=== PATIENT | female | born 1930 | race Hispanic/Latino ===

== ENCOUNTER 2017-12-19 11:55 | Inpatient (IN) | payer MEDICARE, MEDICAID ==
--- NOTE | 2017-12-19 13:42 | C.PDOC ---
History Of Present Illness 87 y/o female brought to ER from [facility] for evaluation of lethargy and confusion which has been present for the past 10 days. Patient is also complaining of decreased appetite. Patient denies having fever,chills, cough, and SOB. Time Seen by Provider: 12/19/17 13:42 Chief Complaint (Nursing): Altered Mental Status History Per: Patient History/Exam Limitations: None Onset/Duration Of Symptoms: Days Current Symptoms Are (Timing): Still Present Severity: Moderate Past Medical History Reviewed: Historical Data, Nursing Documentation, Vital Signs Vital Signs: Last Vital Signs Temp Pulse Resp BP Pulse Ox 94 L 12/19/17 16:24 - Medical History PMH: Anxiety, Atrial Fibrillation, CHF, HTN Surgical History: No Surg Hx Family History: States: No Known Family Hx - Social History Hx Alcohol Use: No Hx Substance Use: No - Immunization History Hx Tetanus Toxoid Vaccination: No Hx Influenza Vaccination: Yes Hx Pneumococcal Vaccination: Yes Review Of Systems Except As Marked, All Systems Reviewed And Found Negative. Constitutional: Positive for: Other (lethargy). Negative for: Fever, Chills Physical Exam - Physical Exam Appears: Non-toxic, No Acute Distress, Other (awake, alert) Skin: Normal Color, Warm, Dry Head: Atraumatic, Normacephalic Eye(s): bilateral: Normal Inspection Nose: Normal Oral Mucosa: Moist Neck: Supple Chest: Symmetrical Cardiovascular: Rhythm Regular Respiratory: Decreased Breath Sounds (decreased breath sounds to right side), No Rales, No Rhonchi, No Wheezing Gastrointestinal/Abdominal: Normal Exam, Soft, No Tenderness, Other (obese) Extremity: Normal ROM, Other (bilateral leg edema( 3/4)) Neurological/Psych: Oriented x3, Normal Speech ED Course And Treatment - Laboratory Results Result Diagrams: 12/19/17 13:50 12/19/17 13:50 Lab Interpretation: Abnormal (d-dimer 1500 prob c/w PNA and NOT DVT/PE as legs NEG US's for DVT's) ECG: Interpreted By Me ECG Rhythm: Atrial Fibrillation Rate From EC O2 Sat by Pulse Oximetry: 94 (RA) Pulse Ox Interpretation: Abnormal - Radiology CXR: Interpreted by Me CXR Interpretation: Yes: Infiltrates (+RLL) - Other Rad US of legs for DVT X-Ray: Interpreted by Me, Read By Radiologist (neg) - CT Scan/US head CT Other Rad Studies (CT/US): Interpreted By Me (no acute findings.), Radiology Report Reviewed Progress Note: vanco/beto castroix Reevaluation Time: 15:12 Reassessment Condition: Improved - Physician Consult Information Outcome Of Conversation: 1500: d/w Dr. Fernandez- admitting for Dr. Ortiz- ok to admit. Medical Decision Making Medical Decision Making: leg edema, CHF, PNA nosocomial, no DVT/PE started Rocephin/Azithro in ED as no Avelox available Plan to continue Zosyn/Vanco during admission for Nosocomial acquired PNA (pt @ [facility]) Disposition Doctor Will See Patient In The: Hospital Counseled Patient/Family Regarding: Studies Performed, Diagnosis - Disposition Disposition: HOSPITALIZED Disposition Time: 15:14 Condition: FAIR - Clinical Impression Clinical Impression: CHF (congestive heart failure), Pneumonia - Scribe Statement The provider has reviewed the documentation as recorded by the Carey Tam Provider Attestation: All medical record entries made by the Carey were at my direction and personally dictated by me. I have reviewed the chart and agree that the record accurately reflects my personal performance of the history, physical exam, medical decision making, and the department course for this patient. I have also personally directed, reviewed, and agree with the discharge instructions and disposition.
[2017-12-19 14:00] LABS: BASO # 0.1 K/uL (0.0-0.2); BASO % 1.1 % (0.0-2.0); EOS # 0.2 K/uL (0.0-0.7); EOS % 2.8 % (0.0-4.0); HEMOGLOBIN 10.6 g/dL (11.0-16.0); LYMPH % 18.5 % (20.0-40.0); MEAN CELL VOLUME 82.3 fL (81.0-99.0); MEAN CORPUSCULAR HEMOGLOBIN 26.8 pg (27.0-31.0); MEAN CORPUSCULAR HGB CONC 32.5 g/dL (33.0-37.0); MONO # 0.7 K/uL (0.0-0.8); NEUT # 3.5 K/uL (1.8-7.0); NEUT % 64.6 % (50.0-75.0); NRBC % 0.2 % (0.0-2.0); RBC 3.95 Mil/uL (3.80-5.20); RED CELL DISTRIBUTION WIDTH 19.1 % (11.5-14.5); WHITE BLOOD COUNT 5.4 K/uL (4.8-10.8)
[2017-12-19] MEDS ORDERED: Moxifloxacin IV 400mg/250ml NS 400 MG/250 ML BAG IV ONE (14:04)
[2017-12-19 14:19] LABS: ALBUMIN 3.6 g/dL (3.5-5.0); CALCIUM 9.2 mg/dl (8.6-10.4)
[2017-12-19 14:20] LABS: INR 1.5; PROTHROMBIN TIME 16.1 SECONDS (9.7-12.2)
[2017-12-19] MEDS ORDERED: Azithromycin 500 MG in Sodium Chloride 0.9% 250 ML IV STA (14:26)
[2017-12-19] MEDS ORDERED: cefTRIAXone IV 1 gm in Dextros 50 ML IV ONE (14:26)
[2017-12-19 14:30] LABS: TROPONIN I 0.022 ng/mL (0.00-0.120)
--- NOTE | 2017-12-19 14:52 | RAD ---
PROCEDURE: CHEST RADIOGRAPH, 1 VIEW HISTORY: SOB COMPARISON: None available. FINDINGS: LUNGS: Multifocal infiltrates the largest in the right upper lobe. Additional lower lobe infiltrates. PLEURA: No pneumothorax or pleural fluid seen. CARDIOVASCULAR: Marked cardiomegaly. OSSEOUS STRUCTURES: No significant abnormalities. VISUALIZED UPPER ABDOMEN: Normal. OTHER FINDINGS: None. IMPRESSION: Cardiomegaly without pulmonary edema. Bilateral infiltrates primarily right upper lobe and left lower lobe. Concordant results with the preliminary interpretation rendered by the emergency department physician procedure.
[2017-12-19] MEDS ORDERED: Piperacillin/Tazobact 3.375 gm 100 ML IVPB ONE (14:55)
--- NOTE | 2017-12-19 15:28 | CT ---
PROCEDURE: CT HEAD WITHOUT CONTRAST. HISTORY: 10 days MS change, falls, neuro nl, ? [facility] COMPARISON: None available. TECHNIQUE: Axial computed tomography images were obtained through the head/brain without intravenous contrast. Radiation dose: Total exam DLP = 809.97 mGy-cm. This CT exam was performed using one or more of the following dose reduction techniques: Automated exposure control, adjustment of the mA and/or kV according to patient size, and/or use of iterative reconstruction technique. FINDINGS: HEMORRHAGE: No intracranial hemorrhage. BRAIN: Good corticomedullary differentiation is seen. Diffuse expansion of the ventriculosulcal and cisternal spaces is appreciated with borderline white matter lucency compatible with diffuse cerebral atrophy and chronic microangiopathy. No suspicious extra-axial fluid collection is identified and the midline brain anatomy appears grossly nonfocal as imaged. There is no mass effect throughout. VENTRICLES: Unremarkable. No hydrocephalus. CALVARIUM: Unremarkable. PARANASAL SINUSES: Unremarkable as visualized. No significant inflammatory changes. MASTOID AIR CELLS: Unremarkable as visualized. No inflammatory changes. OTHER FINDINGS: None. IMPRESSION: Mild age related neuro degenerative changes are identified without definite acute intracranial findings by standard CT criteria. Follow-up MRI or CT of the head are available if indicated.
[2017-12-19 15:30] LABS: ABG ALLEN TEST PO; ARTERIAL BLOOD GAS HCO3 22.2 mmol/L (21-28); ARTERIAL BLOOD GAS HEMOGLOBIN 9.8 g/dL (11.7-17.4); ARTERIAL BLOOD GAS O2 SAT 98.3 % (95-98); ARTERIAL BLOOD GAS PCO2 36 mm/Hg (35-45); ARTERIAL BLOOD GAS PH 7.38 (7.35-7.45); ARTERIAL BLOOD GAS PO2 108 mm/Hg (80-100); ARTERIAL BLOOD GAS TCO2 22.4 mmol/L (22-28)
[2017-12-19 15:35] LABS: URINE BILIRUBIN NEGATIVE (NEGATIVE); URINE BLOOD 3+ (NEGATIVE); URINE CLARITY Hazy (Clear); URINE COLOR Yellow (YELLOW); URINE GLUCOSE (UA) 1+ mg/dL (Normal); URINE LEUKOCYTE ESTERASE 3+ Leu/uL (Negative); URINE PROTEIN 1+ mg/dL (NEGATIVE); URINE UROBILINOGEN NORMAL mg/dL (0.2-1.0)
[2017-12-19 15:37] LABS: URINE BACTERIA FEW (<OCC)
[2017-12-19] MEDS ORDERED: Pilocarpine 2% Opht (15 ml) OS SCH (18:30)
[2017-12-19 19:23] VITALS: RESP 20
[2017-12-19] MEDS ORDERED: Albuterol-Ipratrop 3 mg / 0.5 (3 ml) UD ONE (21:15)
[2017-12-19] MEDS: Albuterol-Ipratrop 3 mg / 0.5 (3 ml) UD INH SCH (21:25)
[2017-12-20] MEDS: Albuterol-Ipratrop 3 mg / 0.5 (3 ml) UD INH SCH ×4 (02:09→19:09)
--- NOTE | 2017-12-20 06:07 | HP ---
CHIEF COMPLAINT: Confusion, altered mental status. HISTORY OF PRESENT ILLNESS: This is an 87-year-old female, sent from intermediate for evaluation of lethargy and confusion. The patient had these symptoms for almost 10 days. At the time, the patient in the intermediate had some blood testing and evaluation and was sent to the emergency room because of the worsening lethargy. The patient was also having decreased appetite. Currently, the patient is in the emergency room. She is complaining of no pain, no chest pain, no cough. She wanted to go home at this time. The patient claims that she was seen by Dr. Livingston and was told that after blood test, sent to emergency room. She is now confused somewhat. She does not know where she is. She is confused to place and as well as person. She is able to remember her next of kin, nieces, and nephews. She has no distress at this time. She does not have any pain. She was not able to walk because of both leg swelling. She has significant hemorrhoids, and also having some constipation. She has no vomiting, no nausea, no headache. PAST MEDICAL HISTORY: Atrial fibrillation, congestive heart failure, hypertension, and anxiety. PAST SURGICAL HISTORY: Include appendectomy. FAMILY HISTORY: Noncontributory. SOCIAL HISTORY: The patient is nonalcoholic and nonsmoker, currently in the intermediate. The patient received pneumococcal and flu vaccination. REVIEW OF SYSTEMS: Noted from the chart. The patient does not have any headache at this time. Complaining of no nausea or vomiting, but the patient does have significant weakness, fatigue, lethargy, and also found to have some altered mental status. PHYSICAL EXAMINATION: GENERAL: Now, the patient is alert and responding well, but easily sleeping. VITAL SIGNS: Vital signs noted. CHEST: Good air entry bilaterally. HEART: Irregular heart sound. ABDOMEN: Nontender abdomen. EXTREMITIES: Significant edema noted up to the mid thigh region. HEAD AUTOMATIC SAWYER: Alert, awake, but confused for time and place. LABORATORY DATA: The patient's labs reviewed. WBC 5.4, hemoglobin 10.6, hematocrit 32.5, platelets 169. PT/INR is normal. Elevated D-dimer noted. Blood ABG, pH is 7.38, pCO2 36, and pO2 108, saturation 94%. Chemistries: BUN is 50, creatinine 2.1, proBNP is mildly elevated. It is otherwise nonspecific. UA: Evidence of infection noted. Digoxin level is on the low side. Chest x-ray showing significant diffuse bilateral ground glass opacities and infiltration noted. EKG pending at this time. Cardiac enzymes are negative. ASSESSMENT AND RECOMMENDATIONS: Arelis Rush is an 87-year-old female now admitted with possible diffuse lung changes with mild hypoxia and also dyspnea and lethargy. Underlying pneumonia cannot be ruled out, possible urinary tract infection. Currently on IV antibiotic with Zosyn to cover empirically the urinary tract infection. She is not having any allergy. The patient is possibly having diffuse interstitial lung changes. Interstitial lung disease cannot be ruled out. The patient also noted to have atrial fibrillation. We will get EKG cardiac evaluation, antibiotic, closely monitor, fall precaution, possibly dementia also noted. We will discuss with the family regarding the advanced directives. We will follow up the patient. Dane Ventura MD MTDD
[2017-12-20 07:45] LABS: BASO # 0.1 K/uL (0.0-0.2); BASO % 1.1 % (0.0-2.0); EOS # 0.1 K/uL (0.0-0.7); EOS % 2.4 % (0.0-4.0); HEMOGLOBIN 10.1 g/dL (11.0-16.0); LYMPH # 1.1 K/uL (1.0-4.3); LYMPH % 20.9 % (20.0-40.0); MEAN CORPUSCULAR HEMOGLOBIN 26.2 pg (27.0-31.0); MEAN PLATELET VOLUME 8.7 fL (7.2-11.7); MONO # 0.6 K/uL (0.0-0.8); MONO % 11.2 % (0.0-10.0); NEUT # 3.3 K/uL (1.8-7.0); NEUT % 64.4 % (50.0-75.0); NRBC % 0.1 % (0.0-2.0); RBC 3.84 Mil/uL (3.80-5.20); WHITE BLOOD COUNT 5.2 K/uL (4.8-10.8)
[2017-12-20] MEDS: Piperacillin/Tazobact 3.375 GM in Sodium Chloride 100 ML IVPB SCH ×2 (08:00→16:45)
[2017-12-20 08:16] LABS: ALBUMIN 3.4 g/dL (3.5-5.0); ALT/SGPT 25 U/L (9-52); AST/SGOT 31 U/L (14-36); BLOOD UREA NITROGEN 49 mg/dL (7-17); CALCIUM 9.5 mg/dl (8.6-10.4); GFR AFRICAN-AMERICAN 30; GFR NON-AFRICAN AMERICAN 25
[2017-12-20 08:18] LABS: CK-MB 1.32 ng/mL (0.0-3.38)
--- NOTE | 2017-12-20 08:20 | CP.PCM.CON ---
Past Patient History - Infectious Disease Hx of Infectious Diseases: None - Past Medical History & Family History Past Medical History?: Yes - Past Social History Smoking Status: Never Smoked - CARDIAC Hx Cardiac Disorders: Yes Hx Atrial Fibrillation: Yes Hx Congestive Heart Failure: Yes Hx Hypertension: Yes - PULMONARY Hx Respiratory Disorders: No - NEUROLOGICAL Hx Neurological Disorder: No - HEENT Hx HEENT Problems: Yes Hx Glaucoma: Yes - RENAL Hx Chronic Kidney Disease: No - ENDOCRINE/METABOLIC Hx Endocrine Disorders: Yes Hx Diabetes Mellitus Type 2: Yes - HEMATOLOGICAL/ONCOLOGICAL Hx Blood Disorders: No - INTEGUMENTARY Hx Dermatological Problems: No - MUSCULOSKELETAL/RHEUMATOLOGICAL Hx Musculoskeletal Disorders: Yes Hx Falls: No Hx Fractures: Yes Other/Comment: Hx of right and left femur fractures. - GASTROINTESTINAL Hx Gastrointestinal Disorders: No - GENITOURINARY/GYNECOLOGICAL Hx Genitourinary Disorders: Yes Hx Incontinence: Yes - PSYCHIATRIC Hx Psychophysiologic Disorder: Yes Hx Anxiety: Yes Hx Substance Use: No - SURGICAL HISTORY Hx Surgeries: No Other/Comment: Unknown, unable to obtain. - ANESTHESIA Hx Anesthesia: No Hx Anesthesia Reactions: No Hx Malignant Hyperthermia: No Meds Allergies/Adverse Reactions: Allergies Allergy/AdvReac Type Severity Reaction Status Date / Time No Known Allergies Allergy Unverified 12/19/17 13:18 - Medications Medications: Current Medications Albuterol/Ipratropium (Duoneb 3 Mg/0.5 Mg (3 Ml) Ud) 3 ml INH RQ6 [facility] Last Admin: 12/20/17 02:09 Dose: Not Given Aspirin (Ecotrin) 81 mg PO DAILY [facility] Diltiazem HCl (Cardizem) 30 mg PO Q8H [facility] Last Admin: 12/20/17 02:51 Dose: Not Given Furosemide (Lasix) 40 mg IVP DAILY [facility] Home Med (Acetaminophen [Tylenol]) 325 mg PO Q6 PRN PRN Reason: Opiate reversal Home Med (Travoprost [Travatan Z]) 1 drop OP DAILY [facility] Piperacillin Sod/Tazobactam (Sod 3.375 gm/ Sodium Chloride) 100 mls @ 200 mls/ hr IVPB Q8H [facility] PRN Reason: Protocol Last Admin: 12/20/17 08:00 Dose: 200 mls/hr Metoprolol Tartrate (Lopressor) 25 mg PO BID [facility] Pilocarpine HCl (Isopto Carpine 2% Opht Soln) 1 drop OS Q8H [facility] Last Admin: 12/20/17 02:50 Dose: Not Given Results - Vital Signs Recent Vital Signs: Last Vital Signs Temp 97.7 F 12/20/17 07:00 Pulse 98 H 12/20/17 07:00 Resp 20 12/20/17 07:00 BP 127/74 12/20/17 07:00 Pulse Ox 99 12/20/17 07:00 - Labs Result Diagrams: 12/20/17 07:35 12/20/17 07:35 Labs: Laboratory Results - last 24 hr 12/19/17 12/19/17 12/19/17 13:50 13:50 13:50 WBC 5.4 RBC 3.95 Hgb 10.6 L Hct 32.5 L MCV 82.3 MCH 26.8 L MCHC 32.5 L RDW 19.1 H Plt Count 169 MPV 9.0 Neut % (Auto) 64.6 Lymph % (Auto) 18.5 L [place] % (Auto) 13.0 H Eos % (Auto) 2.8 Baso % (Auto) 1.1 Neut # (Auto) 3.5 Lymph # (Auto) 1.0 [place] # (Auto) 0.7 Eos # (Auto) 0.2 Baso # (Auto) 0.1 PT 16.1 H INR 1.5 APTT 31 D-Dimer, Quantitative 1488 H Puncture Site pCO2 pO2 HCO3 ABG pH ABG Total CO2 ABG O2 Saturation ABG Base Excess ABG Hemoglobin ABG Carboxyhemoglobin POC ABG HHb (Measured) ABG Methemoglobin Tad Test A-a O2 Difference Respiratory Index Hgb O2 Saturation Liter Flow FiO2 Sodium 145 Potassium 4.9 Chloride 104 Carbon Dioxide 24 Anion Gap 21 H BUN 50 H Creatinine 2.1 H Est GFR ( Amer) 27 Est GFR (Non-Af Amer) 22 Random Glucose 84 Calcium 9.2 Total Bilirubin 1.3 AST 31 ALT 13 Alkaline Phosphatase 121 Total Creatine Kinase CK-MB (Mass) Troponin I 0.0220 NT-Pro-B Natriuret Pep 4830 H Total Protein 7.1 Albumin 3.6 Globulin 3.5 Albumin/Globulin Ratio 1.0 Urine Color Urine Clarity Urine pH Ur Specific [place] Urine Protein Urine Glucose (UA) Urine Ketones Urine Blood Urine Nitrate Urine Bilirubin Urine Urobilinogen Ur Leukocyte Esterase Urine WBC (Auto) Urine RBC (Auto) Urine Bacteria Digoxin 12/19/17 12/19/17 12/19/17 13:50 15:19 15:27 WBC RBC Hgb Hct MCV MCH MCHC RDW Plt Count MPV Neut % (Auto) Lymph % (Auto) [place] % (Auto) Eos % (Auto) Baso % (Auto) Neut # (Auto) Lymph # (Auto) [place] # (Auto) Eos # (Auto) Baso # (Auto) PT INR APTT D-Dimer, Quantitative Puncture Site Lr pCO2 36 pO2 108 H HCO3 22.2 ABG pH 7.38 ABG Total CO2 22.4 ABG O2 Saturation 98.3 H ABG Base Excess -3.4 L ABG Hemoglobin 9.8 L ABG Carboxyhemoglobin 2.5 H POC ABG HHb (Measured) 1.6 ABG Methemoglobin 1.1 Tad Test Po A-a O2 Difference 61.0 Respiratory Index 0.6 Hgb O2 Saturation 94.8 L Liter Flow 2.5 FiO2 30.0 Sodium Potassium Chloride Carbon Dioxide Anion Gap BUN Creatinine Est GFR ( Amer) Est GFR (Non-Af Amer) Random Glucose Calcium Total Bilirubin AST ALT Alkaline Phosphatase Total Creatine Kinase CK-MB (Mass) Troponin I NT-Pro-B Natriuret Pep Total Protein Albumin Globulin Albumin/Globulin Ratio Urine Color Yellow Urine Clarity Hazy Urine pH 5.0 Ur Specific [place] 1.010 Urine Protein 1+ H Urine Glucose (UA) 1+ Urine Ketones Negative Urine Blood 3+ H Urine Nitrate Positive H Urine Bilirubin Negative Urine Urobilinogen Normal Ur Leukocyte Esterase 3+ H Urine WBC (Auto) 336 H Urine RBC (Auto) 51 H Urine Bacteria Few H Digoxin < 0.4 L 12/20/17 12/20/17 07:35 07:35 WBC 5.2 RBC 3.84 Hgb 10.1 L Hct 31.5 L MCV 82.0 MCH 26.2 L MCHC 32.0 L RDW 19.0 H Plt Count 159 MPV 8.7 Neut % (Auto) 64.4 Lymph % (Auto) 20.9 [place] % (Auto) 11.2 H Eos % (Auto) 2.4 Baso % (Auto) 1.1 Neut # (Auto) 3.3 Lymph # (Auto) 1.1 [place] # (Auto) 0.6 Eos # (Auto) 0.1 Baso # (Auto) 0.1 PT INR APTT D-Dimer, Quantitative Puncture Site pCO2 pO2 HCO3 ABG pH ABG Total CO2 ABG O2 Saturation ABG Base Excess ABG Hemoglobin ABG Carboxyhemoglobin POC ABG HHb (Measured) ABG Methemoglobin Tad Test A-a O2 Difference Respiratory Index Hgb O2 Saturation Liter Flow FiO2 Sodium 144 Potassium 5.0 Chloride 103 Carbon Dioxide 27 Anion Gap 18 BUN 49 H Creatinine 1.9 H Est GFR ( Amer) 30 Est GFR (Non-Af Amer) 25 Random Glucose 81 Calcium 9.5 Total Bilirubin 1.3 AST 31 ALT 25 Alkaline Phosphatase 114 Total Creatine Kinase < 20 L CK-MB (Mass) 1.32 Troponin I 0.0150 NT-Pro-B Natriuret Pep Total Protein 6.9 Albumin 3.4 L Globulin 3.5 Albumin/Globulin Ratio 1.0 Urine Color Urine Clarity Urine pH Ur Specific [place] Urine Protein Urine Glucose (UA) Urine Ketones Urine Blood Urine Nitrate Urine Bilirubin Urine Urobilinogen Ur Leukocyte Esterase Urine WBC (Auto) Urine RBC (Auto) Urine Bacteria Digoxin
--- NOTE | 2017-12-20 08:20 | CP.PCM.CON ---
History of Present Illness - History of Present Illness History of Present Illness: patient seen/examined. full consult to follow. will rate control Unclear if she is ideal candidate for [facility] anticoagulation due to falls risk Past Patient History - Infectious Disease Hx of Infectious Diseases: None - Past Medical History & Family History Past Medical History?: Yes - Past Social History Smoking Status: Never Smoked - CARDIAC Hx Cardiac Disorders: Yes Hx Atrial Fibrillation: Yes Hx Congestive Heart Failure: Yes Hx Hypertension: Yes - PULMONARY Hx Respiratory Disorders: No - NEUROLOGICAL Hx Neurological Disorder: No - HEENT Hx HEENT Problems: Yes Hx Glaucoma: Yes - RENAL Hx Chronic Kidney Disease: No - ENDOCRINE/METABOLIC Hx Endocrine Disorders: Yes Hx Diabetes Mellitus Type 2: Yes - HEMATOLOGICAL/ONCOLOGICAL Hx Blood Disorders: No - INTEGUMENTARY Hx Dermatological Problems: No - MUSCULOSKELETAL/RHEUMATOLOGICAL Hx Musculoskeletal Disorders: Yes Hx Falls: No Hx Fractures: Yes Other/Comment: Hx of right and left femur fractures. - GASTROINTESTINAL Hx Gastrointestinal Disorders: No - GENITOURINARY/GYNECOLOGICAL Hx Genitourinary Disorders: Yes Hx Incontinence: Yes - PSYCHIATRIC Hx Psychophysiologic Disorder: Yes Hx Anxiety: Yes Hx Substance Use: No - SURGICAL HISTORY Hx Surgeries: No Other/Comment: Unknown, unable to obtain. - ANESTHESIA Hx Anesthesia: No Hx Anesthesia Reactions: No Hx Malignant Hyperthermia: No Meds Allergies/Adverse Reactions: Allergies Allergy/AdvReac Type Severity Reaction Status Date / Time No Known Allergies Allergy Unverified 12/19/17 13:18 - Medications Medications: Current Medications Albuterol/Ipratropium (Duoneb 3 Mg/0.5 Mg (3 Ml) Ud) 3 ml INH RQ6 [facility] Last Admin: 12/20/17 02:09 Dose: Not Given Aspirin (Ecotrin) 81 mg PO DAILY [facility] Diltiazem HCl (Cardizem) 30 mg PO Q8H [facility] Last Admin: 12/20/17 02:51 Dose: Not Given Furosemide (Lasix) 40 mg IVP DAILY [facility] Home Med (Acetaminophen [Tylenol]) 325 mg PO Q6 PRN PRN Reason: Opiate reversal Home Med (Travoprost [Travatan Z]) 1 drop OP DAILY [facility] Piperacillin Sod/Tazobactam (Sod 3.375 gm/ Sodium Chloride) 100 mls @ 200 mls/ hr IVPB Q8H [facility] PRN Reason: Protocol Last Admin: 12/20/17 08:00 Dose: 200 mls/hr Metoprolol Tartrate (Lopressor) 25 mg PO BID [facility] Pilocarpine HCl (Isopto Carpine 2% Opht Soln) 1 drop OS Q8H [facility] Last Admin: 12/20/17 02:50 Dose: Not Given Results - Vital Signs Recent Vital Signs: Last Vital Signs Temp 97.7 F 12/20/17 07:00 Pulse 98 H 12/20/17 07:00 Resp 20 12/20/17 07:00 BP 127/74 12/20/17 07:00 Pulse Ox 99 12/20/17 07:00 - Labs Result Diagrams: 12/20/17 07:35 12/20/17 07:35 Labs: Laboratory Results - last 24 hr 12/19/17 12/19/17 12/19/17 13:50 13:50 13:50 WBC 5.4 RBC 3.95 Hgb 10.6 L Hct 32.5 L MCV 82.3 MCH 26.8 L MCHC 32.5 L RDW 19.1 H Plt Count 169 MPV 9.0 Neut % (Auto) 64.6 Lymph % (Auto) 18.5 L [place] % (Auto) 13.0 H Eos % (Auto) 2.8 Baso % (Auto) 1.1 Neut # (Auto) 3.5 Lymph # (Auto) 1.0 [place] # (Auto) 0.7 Eos # (Auto) 0.2 Baso # (Auto) 0.1 PT 16.1 H INR 1.5 APTT 31 D-Dimer, Quantitative 1488 H Puncture Site pCO2 pO2 HCO3 ABG pH ABG Total CO2 ABG O2 Saturation ABG Base Excess ABG Hemoglobin ABG Carboxyhemoglobin POC ABG HHb (Measured) ABG Methemoglobin Tad Test A-a O2 Difference Respiratory Index Hgb O2 Saturation Liter Flow FiO2 Sodium 145 Potassium 4.9 Chloride 104 Carbon Dioxide 24 Anion Gap 21 H BUN 50 H Creatinine 2.1 H Est GFR ( Amer) 27 Est GFR (Non-Af Amer) 22 Random Glucose 84 Calcium 9.2 Total Bilirubin 1.3 AST 31 ALT 13 Alkaline Phosphatase 121 Total Creatine Kinase CK-MB (Mass) Troponin I 0.0220 NT-Pro-B Natriuret Pep 4830 H Total Protein 7.1 Albumin 3.6 Globulin 3.5 Albumin/Globulin Ratio 1.0 Urine Color Urine Clarity Urine pH Ur Specific [place] Urine Protein Urine Glucose (UA) Urine Ketones Urine Blood Urine Nitrate Urine Bilirubin Urine Urobilinogen Ur Leukocyte Esterase Urine WBC (Auto) Urine RBC (Auto) Urine Bacteria Digoxin 12/19/17 12/19/17 12/19/17 13:50 15:19 15:27 WBC RBC Hgb Hct MCV MCH MCHC RDW Plt Count MPV Neut % (Auto) Lymph % (Auto) [place] % (Auto) Eos % (Auto) Baso % (Auto) Neut # (Auto) Lymph # (Auto) [place] # (Auto) Eos # (Auto) Baso # (Auto) PT INR APTT D-Dimer, Quantitative Puncture Site Lr pCO2 36 pO2 108 H HCO3 22.2 ABG pH 7.38 ABG Total CO2 22.4 ABG O2 Saturation 98.3 H ABG Base Excess -3.4 L ABG Hemoglobin 9.8 L ABG Carboxyhemoglobin 2.5 H POC ABG HHb (Measured) 1.6 ABG Methemoglobin 1.1 Tad Test Po A-a O2 Difference 61.0 Respiratory Index 0.6 Hgb O2 Saturation 94.8 L Liter Flow 2.5 FiO2 30.0 Sodium Potassium Chloride Carbon Dioxide Anion Gap BUN Creatinine Est GFR ( Amer) Est GFR (Non-Af Amer) Random Glucose Calcium Total Bilirubin AST ALT Alkaline Phosphatase Total Creatine Kinase CK-MB (Mass) Troponin I NT-Pro-B Natriuret Pep Total Protein Albumin Globulin Albumin/Globulin Ratio Urine Color Yellow Urine Clarity Hazy Urine pH 5.0 Ur Specific [place] 1.010 Urine Protein 1+ H Urine Glucose (UA) 1+ Urine Ketones Negative Urine Blood 3+ H Urine Nitrate Positive H Urine Bilirubin Negative Urine Urobilinogen Normal Ur Leukocyte Esterase 3+ H Urine WBC (Auto) 336 H Urine RBC (Auto) 51 H Urine Bacteria Few H Digoxin < 0.4 L 12/20/17 12/20/17 07:35 07:35 WBC 5.2 RBC 3.84 Hgb 10.1 L Hct 31.5 L MCV 82.0 MCH 26.2 L MCHC 32.0 L RDW 19.0 H Plt Count 159 MPV 8.7 Neut % (Auto) 64.4 Lymph % (Auto) 20.9 [place] % (Auto) 11.2 H Eos % (Auto) 2.4 Baso % (Auto) 1.1 Neut # (Auto) 3.3 Lymph # (Auto) 1.1 [place] # (Auto) 0.6 Eos # (Auto) 0.1 Baso # (Auto) 0.1 PT INR APTT D-Dimer, Quantitative Puncture Site pCO2 pO2 HCO3 ABG pH ABG Total CO2 ABG O2 Saturation ABG Base Excess ABG Hemoglobin ABG Carboxyhemoglobin POC ABG HHb (Measured) ABG Methemoglobin Tad Test A-a O2 Difference Respiratory Index Hgb O2 Saturation Liter Flow FiO2 Sodium 144 Potassium 5.0 Chloride 103 Carbon Dioxide 27 Anion Gap 18 BUN 49 H Creatinine 1.9 H Est GFR ( Amer) 30 Est GFR (Non-Af Amer) 25 Random Glucose 81 Calcium 9.5 Total Bilirubin 1.3 AST 31 ALT 25 Alkaline Phosphatase 114 Total Creatine Kinase < 20 L CK-MB (Mass) 1.32 Troponin I 0.0150 NT-Pro-B Natriuret Pep Total Protein 6.9 Albumin 3.4 L Globulin 3.5 Albumin/Globulin Ratio 1.0 Urine Color Urine Clarity Urine pH Ur Specific [place] Urine Protein Urine Glucose (UA) Urine Ketones Urine Blood Urine Nitrate Urine Bilirubin Urine Urobilinogen Ur Leukocyte Esterase Urine WBC (Auto) Urine RBC (Auto) Urine Bacteria Digoxin
[2017-12-20] MEDS: Pilocarpine 2% Opht (15 ml) OU SCH ×2 (09:50→17:48)
--- NOTE | 2017-12-20 10:42 | VASCLAB ---
PROCEDURE: Lower Extremity Venous Duplex Exam. HISTORY: leg edema, h/o R leg fx PRIORS: None. TECHNIQUE: Bilateral common femoral, femoral, popliteal and posterior tibial, peroneal and great saphenous veins were evaluated. Flow was assessed with color Doppler, compressibility, assessment of phasic flow and augmentation response. Report prepared by MADELEINE Castro, RVT FINDINGS: RIGHT: 1. Common Femoral Vein: 1.1. Compressibility - Fully compressible: Thrombus - None : Flow - Phasic: Augmentation -Normal: Reflux - None. 2. Femoral Vein: 2.1. Compressibility - Fully compressible: Thrombus - None : Flow - Phasic: Augmentation -Normal: Reflux - None. 3. Popliteal Vein: 3.1. Compressibility - Fully compressible: Thrombus - None : Flow - Phasic: Augmentation -Normal: Reflux - None. 4. Posterior Tibial Vein: 4.1. Compressibility - Fully compressible: Thrombus - None: Flow - Phasic: Augmentation -Normal: Reflux - None. 5. Peroneal Vein: 5.1. Compressibility - Fully compressible: Thrombus - None: Flow - Phasic: Augmentation -Normal: Reflux - None. 6. Great Saphenous Vein: 6.1. Compressibility - Fully compressible: Thrombus - None: Flow - Phasic: Augmentation - Normal: Reflux - None. LEFT: 1. Common Femoral Vein: 1.1. Compressibility - Fully compressible: Thrombus - None: Flow - Phasic: Augmentation -Normal: Reflux - None. 2. Femoral Vein: 2.1. Compressibility - Fully compressible: Thrombus - None: Flow - Phasic: Augmentation -Normal: Reflux - None. 3. Popliteal Vein: 3.1. Compressibility - Fully compressible: Thrombus - None : Flow - Phasic: Augmentation -Normal: Reflux - None. 4. Posterior Tibial Vein: 4.1. Compressibility - Fully compressible: Thrombus - None: Flow - Phasic: Augmentation -Normal: Reflux - None. 5. Peroneal Vein: 5.1. Compressibility - Fully compressible: Thrombus - None: Flow - Phasic: Augmentation -Normal: Reflux - None. 6. Great Saphenous Vein: 6.1. Compressibility - Fully compressible: Thrombus - None: Flow - Phasic: Augmentation - Normal: Reflux - None. OTHER FINDINGS: Right: None significant. Left: None significant. IMPRESSION: Right: No evidence of deep or superficial vein thrombosis of the right lower extremity. Normal valve function noted of the right side. Left: No evidence of deep or superficial vein thrombosis of the left lower extremity. Normal valve function noted of the left side.
--- NOTE | 2017-12-20 12:47 | CT ---
PROCEDURE: CT Chest without contrast HISTORY: pneumonia COMPARISON: None. TECHNIQUE: Contiguous axial images were obtained through the chest without intravenous contrast enhancement. Sagittal and coronal reconstructions were performed. Radiation dose (DLP): 509.56 mGy-cm. This CT exam was performed using one or more of the following dose reduction techniques: Automated exposure control, adjustment of the mA and/or kV according to patient size, and/or use of iterative reconstruction technique. FINDINGS: LUNGS: No infiltrate. Minimal left lower lobe subsegmental/compressive atelectasis. Please note that evaluation of the lung parenchyma is technically limited due to respiratory motion artifact particularly at the lung base. There is thickening of the interlobular septa in the upper lobes common nonspecific. There are Yevgeniy B-lines noted. Findings are suggestive of congestive heart failure. No evidence of valeria pulmonary edema. MEDIASTINUM: Unremarkable thoracic aorta. No aneurysm. Marked cardiomegaly. No pericardial effusion. Coronary arterial calcification. Dilated main pulmonary artery to a diameter of 3.5 cm. Shotty subcentimeter mediastinal lymph nodes. There are several enlarged right paratracheal nodes, up to 12 mm in short axis. , PLEURA: Small bilateral pleural effusion, left greater than right. No pneumothorax. BONES: Mild compression deformity of the T10 and T11 vertebrae, age indeterminate. UPPER ABDOMEN: Small hiatal hernia. Small cortical cysts in the upper pole of both kidneys. Minimal ascites. OTHER FINDINGS: None. IMPRESSION: No acute infiltrate. Small bilateral pleural effusion, left greater than right. Left lower lobe subsegmental/ compressive atelectasis. Thickened interlobular septae date and the subpleural lymphatics consistent with congestive heart failure. No evidence of pulmonary edema. Dilated main pulmonary artery. Mild mediastinal lymphadenopathy, nonspecific. Compression deformity of the T10 and T11 vertebrae, age indeterminate. Small hiatal hernia.
--- NOTE | 2017-12-20 13:06 | CARD ---
APPROVED REPORT EXAM: Two-dimensional and M-mode echocardiogram with Doppler and color Doppler. Other Information Quality : GoodRhythm : INDICATION Atrial Fibrillation Congestive Heart Failure RISK FACTORS Hypertension Diabetes 2D DIMENSIONS IVSd1.3 (0.7-1.1cm)LVDd3.2 (3.9-5.9cm) LVOT Diameter2.2 (1.8-2.4cm)PWd1.3 (0.7-1.1cm) LVDs2.3 (2.5-4.0cm)FS (%) 30.4 % LVEF (%)59.1 (>50%) M-Mode DIMENSIONS Left Atrium (MM)4.78 (2.5-4.0cm)Aortic Root3.82 (2.2-3.7cm) Aortic Cusp Exc.1.90 (1.5-2.0cm) Mitral Valve MV E Kypuwzxw65.2cm/sE/A ratio0.0 TDI E/Lateral E'0.0E/Medial E'0.0 Tricuspid Valve TR Peak [id number]/sTR Peak [id number] LEFT VENTRICLE The left ventricle is normal size. There is mild concentric left ventricular hypertrophy. The left ventricular function is normal. The left ventricular ejection fraction is within the normal range. There is normal LV segmental wall motion. The left ventricular diastolic function is normal. No left ventricle thrombus noted on this study. There is no ventricular septal defect visualized. There is no left ventricular aneurysm. There is no mass noted in the left ventricle. RIGHT VENTRICLE The right ventricle is normal size. There is normal right ventricular wall thickness. The right ventricular systolic function is normal. ATRIA The left atrium is moderately dilated. The right atrium is moderately dilated. AORTIC VALVE The aortic valve is mildly to moderately calcified. LEFT CORONARY CUSP IS IMMOBILE No aortic regurgitation is present. MITRAL VALVE The mitral valve is normal in structure. There is no mitral valve stenosis. Mitral regurgitation is moderate. TRICUSPID VALVE The tricuspid valve is normal in structure. There is moderate tricuspid regurgitation. There is mild pulmonary hypertension. PULMONIC VALVE The pulmonary valve is normal in structure. There is mild pulmonic valvular regurgitation. GREAT VESSELS The aortic root is normal in size. The ascending aorta is normal in size. The pulmonary artery is normal. The IVC is normal in size and collapses >50% with inspiration. PERICARDIAL EFFUSION There is no pericardial effusion. <Conclusion> There is mild concentric left ventricular hypertrophy. The left atrium is moderately dilated. The left atrium is moderately dilated. The right atrium is moderately dilated. Mitral regurgitation is moderate. There is moderate tricuspid regurgitation. There is mild pulmonary hypertension. LVEF IS 60%.
[2017-12-20] MEDS ORDERED: Latanoprost 2.5 ml Opht Soln OU SCH (22:00)
[2017-12-21] MEDS: Piperacillin/Tazobact 3.375 GM in Sodium Chloride 100 ML IVPB SCH (00:40)
--- NOTE | 2017-12-21 00:58 | CP.PCM.PN ---
Subjective - Date & Time of Evaluation Date of Evaluation: 12/20/17 Time of Evaluation: 17:20 - Subjective Subjective: Patient is more awake and responding. The leg swelling is improving. No chest pain noted Denies any nausea vomiting, eating well. Patient is more alert and awake. Objective - Vital Signs/Intake and Output Vital Signs (last 24 hours): Temp Pulse Resp BP Pulse Ox 97.8 F 97 H 20 121/78 98 12/20/17 15:46 12/20/17 15:46 12/20/17 15:46 12/20/17 17:47 12/20/17 15:46 Intake and Output: 12/20/17 12/21/17 18:59 06:59 Intake Total 500 Output Total 400 700 Balance 100 -700 - Medications Medications: Current Medications Acetaminophen (Tylenol 325mg Tab) 650 mg PO Q6 PRN PRN Reason: PAIN OR FEVER Albuterol/Ipratropium (Duoneb 3 Mg/0.5 Mg (3 Ml) Ud) 3 ml INH RQ6 [facility] Last Admin: 12/20/17 19:09 Dose: 3 ml Aspirin (Ecotrin) 81 mg PO DAILY [facility] Last Admin: 12/20/17 09:30 Dose: 81 mg Diltiazem HCl (Cardizem) 30 mg PO Q8H [facility] Last Admin: 12/20/17 17:48 Dose: 30 mg Furosemide (Lasix) 40 mg IVP DAILY [facility] Last Admin: 12/20/17 09:27 Dose: 40 mg Latanoprost (Xalatan Opht) 0 ml OU HS [facility] Last Admin: 12/20/17 22:34 Dose: 2.5 ml Metoprolol Tartrate (Lopressor) 25 mg PO BID [facility] Last Admin: 12/20/17 17:47 Dose: 25 mg Pilocarpine HCl (Isopto Carpine 2% Opht Soln) 1 drop OU Q8H [facility] Last Admin: 12/20/17 17:48 Dose: 1 drop - Labs Labs: 12/20/17 07:35 12/20/17 07:35 PT 16.1 SECONDS (9.7-12.2) H 12/19/17 13:50 INR 1.5 12/19/17 13:50 APTT 31 SECONDS (21-34) 12/19/17 13:50 - Head Exam Head Exam: ATRAUMATIC Additional comments: Mild confusion noted, Chest good air entry regular heart sound nontender abdominal pedal edema now Assessment and Plan (1) CHF (congestive heart failure) Assessment & Plan: Patient with atrial fibrillation, and associated with the possible congestive heart failure. Acute on chronic diastolic heart failure. Less likely pneumonia. Will discontinue the antibiotic. Continue the diuretics. Possible discharge plan tomorrow Status: Acute
[2017-12-21] MEDS: Pilocarpine 2% Opht (15 ml) OU SCH ×3 (01:08→17:40)
[2017-12-21] MEDS: Albuterol-Ipratrop 3 mg / 0.5 (3 ml) UD INH SCH ×4 (01:16→19:38)
--- NOTE | 2017-12-21 11:23 | CARD ---
APPROVED REPORT EKG Measurement Heart [id number] <Conclusion> Atrial fibrillation with rapid ventricular response Poor R wave progression Right ventricular hypertrophy Abnormal ECG
--- NOTE | 2017-12-21 12:01 | CP.PCM.PN ---
Subjective - Date & Time of Evaluation Date of Evaluation: 12/21/17 Time of Evaluation: 12:01 - Subjective Subjective: PT SEEN BY DR. PAZ THIS MORNING AND CLEARED FOR D/C BACK TO [facility] TODAY. TO TAKE CIPRO PO X5 DAYS PER DR. PAZ. PT WILL BE UNDER THE SERVICE OF THE DR. NAT. LOBATO TO ARRANGE TRANSPORTATION. -PLACE UNDER THE SERVICE OF DR. PAZ WHILE AT [facility]---CALL UPON ARRIVAL TO THE FACILITY FOR ADMITTING ORDERS. -CONTINUE ALL MEDICATIONS ACCORDING TO THE MED REC FORM---CHANGES CAN BE MADE BY DR. PAZ. -CONTINUE CIPRO 500 MG (1 TABLET) TWICE A DAY FOR 5 DAYS (STARTED ON 12/21/17 IN THE MORNING---GIVE EVENING DOSE----AND LAST DOSE TO BE GIVEN ON 12/25/17). -PHYSICAL THERAPY TOLERATED. -IF ANY FURTHER QUESTIONS OR ORDERS, CONTACT DR. PAZ'S OFFICE. Objective - Vital Signs/Intake and Output Vital Signs (last 24 hours): Temp Pulse Resp BP Pulse Ox 97.6 F 110 H 20 93/58 L 98 12/21/17 09:00 12/21/17 09:00 12/21/17 09:00 12/21/17 09:54 12/21/17 09:00 Intake and Output: 12/21/17 12/21/17 06:59 18:59 Intake Total 200 Output Total 950 Balance -750 - Medications Medications: Current Medications Acetaminophen (Tylenol 325mg Tab) 650 mg PO Q6 PRN PRN Reason: PAIN OR FEVER Albuterol/Ipratropium (Duoneb 3 Mg/0.5 Mg (3 Ml) Ud) 3 ml INH RQ6 [facility] Last Admin: 12/21/17 07:30 Dose: 3 ml Aspirin (Ecotrin) 81 mg PO DAILY [facility] Last Admin: 12/21/17 09:54 Dose: 81 mg Ciprofloxacin (Cipro) 500 mg PO STAT STA PRN Reason: Protocol Stop: 12/21/17 12:00 Diltiazem HCl (Cardizem) 30 mg PO Q8H [facility] Last Admin: 12/21/17 09:51 Dose: Not Given Furosemide (Lasix) 40 mg IVP DAILY [facility] Last Admin: 12/21/17 09:51 Dose: Not Given Latanoprost (Xalatan Opht) 0 ml OU HS [facility] Last Admin: 12/20/17 22:34 Dose: 2.5 ml Metoprolol Tartrate (Lopressor) 25 mg PO BID [facility] Last Admin: 12/21/17 09:54 Dose: Not Given Pilocarpine HCl (Isopto Carpine 2% Opht Soln) 1 drop OU Q8H [facility] Last Admin: 12/21/17 09:54 Dose: 1 drop - Labs Labs: 12/20/17 07:35 12/20/17 07:35 PT 16.1 SECONDS (9.7-12.2) H 12/19/17 13:50 INR 1.5 12/19/17 13:50 APTT 31 SECONDS (21-34) 12/19/17 13:50
[2017-12-21 16:37] VITALS: TEMP 98.1; O2SAT 96
[2017-12-21 18:59] VITALS: BP 115/78; PULSE 120
--- NOTE | 2017-12-24 12:25 | CARD ---
APPROVED REPORT EKG Measurement Heart [id number] <Conclusion> Atrial fibrillation Low voltage QRS Cannot rule out Anterior infarct, age undetermined Abnormal ECG
== END 2017-12-21 19:30 | DRG 293 ==
LOC: C.ER 11:55 → C.9E 14:48 → C.6T 21:51
PROVIDERS: ADMIT Internal Medicine; ATTEND Internal Medicine
DX: I11.0 Hypertensive heart disease with heart failure (principal); I50.33 Acute on chronic diastolic (congestive) heart failure; I48.91 Unspecified atrial fibrillation; E11.9 Type 2 diabetes mellitus without complications; F41.9 Anxiety disorder, unspecified